=== PATIENT | male | born 1995 | race Caucasian/White ===

== ENCOUNTER 2018-11-22 11:04 | Emergency (ER) | payer SELFPAY ==
[~2018-11-22] VITALS: Ht 175.3 cm; Wt 80.0 kg
[2018-11-22 11:21] VITALS: BP 130/92
[2018-11-22] MEDS ORDERED: LIDOCAINE HCL/PF 1% 10 MG/ML 5ML VIAL IJ ONE (12:45)
[2018-11-22] MEDS ORDERED: BACITRACIN ZINC OINT UDPKT TOP ONE (12:45)
[2018-11-22] MEDS ORDERED: TETANUS, DIPHTHERIA, PERTUSSIS VAC/PF 0.5ML (>7YR OLD) IM ONE (12:45)
== END 2018-11-22 13:44 | disposition home or self-care (01) ==
LOC: ER 11:04
DX: S61.216A Laceration without foreign body of right little finger without damage to nail, initial encounter (principal); W26.8XXA Contact with other sharp object(s), not elsewhere classified, initial encounter; Y93.89 Activity, other specified; Y92.810 Car as the place of occurrence of the external cause
CPT/HCPCS: 12001; 90471; 90715; 99283; J3490; Z7610

== ENCOUNTER 2018-11-24 12:37 | Emergency (ER) | payer SELFPAY ==
[~2018-11-24] VITALS: Ht 175.3 cm; Wt 80.0 kg
[2018-11-24 13:22] VITALS: BP 126/81
[2018-11-24] MEDS ORDERED: BACITRACIN ZINC OINT UDPKT TOP ONE (14:00)
== END 2018-11-24 14:17 | disposition home or self-care (01) ==
LOC: ER 12:37
DX: Z48.00 Encounter for change or removal of nonsurgical wound dressing (principal)
CPT/HCPCS: 99281